=== PATIENT | male | born 1965 | race African-American/Black ===

== ENCOUNTER 2017-09-02 20:33 | Emergency (ER) | payer OTHER ==
[~2017-09-02] VITALS: Ht 165.1 cm; Wt 89.5 kg
[~2017-09-02 20:33] MED LIST: ATENOLOL100 MG PO; BENICAR HCT 401 EAC1 PO; DILTIAZEM 24HR360 M1 PO; DOXAZOSIN MESYLA2 MG PO; TAZTIA XT360 MG PO
[2017-09-02 22:14] LABS: HEMATOCRIT 37.4 % (38.0-50.0); HEMOGLOBIN 13.8 G/DL (12.5-16.6); MCH 31.4 PG (29.0-34.0); MCHC 36.9 G/DL (30.0-36.0); MCV 85.2 FL (86-99); PLATELET COUNT 241 K/uL (156-360); RBC DIS.WIDTH-CV 13.2 % (11.8-14.6); RED BLOOD COUNT 4.39 M/uL (4.00-5.50); WHITE BLOOD COUNT 5.9 K/uL (4.1-10.2)
[2017-09-02 22:41] LABS: ALBUMIN 3.9 g/dL (3.2-4.8); CHLORIDE 108 mEq/L (99-109); POTASSIUM 3.6 mEq/L (3.7-5.4); SODIUM 141 mEq/L (136-147)
[2017-09-02 22:43] LABS: GLUCOSE 102 mg/dL (70-99); TOTAL PROTEIN 6.8 g/dL (6.4-8.3)
[2017-09-02 22:45] LABS: TOTAL BILIRUBIN 0.4 mg/dL (0.0-1.0)
[2017-09-02 22:47] LABS: ALKALINE PHOSPHATASE 85 IU/L (3-129); CREATININE 1.1 mg/dL (0.6-1.3); GFR ESTIMATE (CALCULATED) > 59 mL/min/ (58.99-99999)
[2017-09-02 22:48] LABS: AST (GOT) 15 IU/L (2-34); UREA NITROGEN (BUN) 14 mg/dL (9-23)
[2017-09-02 22:50] LABS: ALT (GPT) 21 IU/L (3-49); CREATINE KINASE 141 IU/L (1-294)
[2017-09-02 22:51] LABS: TROP-I INTERPRETATION NEGATIVE; TROPONIN-I 0.01 ng/mL (0.0-0.30)
[2017-09-02 23:13] VITALS: BP 147/96
== END 2017-09-02 23:13 | disposition home or self-care (01) ==
LOC: EME 20:33
PROVIDERS: Emergency Medicine
DX: R00.1 Bradycardia, unspecified (principal); I45.2 Bifascicular block; I10 Essential (primary) hypertension; Z87.19 Personal history of other diseases of the digestive system; Z98.890 Other specified postprocedural states
CPT/HCPCS: 80053; 82550; 84484; 85027; 93005; 99281; 99284